=== PATIENT | male | born 1970 | race Caucasian/White ===

== ENCOUNTER 2024-10-08 05:55 | Day surgery (SDC) | payer OTHER ==
[2024-10-06 14:02] VITALS: BMI 30.4
[2024-10-08] MEDS ORDERED: PHENYLephrine 2.5% Ophth Soln 15 ml Bottle ONE (06:20)
[2024-10-08] MEDS ORDERED: Cyclopentolate 1% Opth Drop 2 ML BOT ONE (06:20)
[2024-10-08] MEDS ORDERED: Fluorouracil 100 MG, Enoxaparin 25 MG, EPINEPHrine 0.3 MG in Ophthalmic Irrigation Solu... IRR SCH (06:30)
[2024-10-08] MEDS ORDERED: PROPOFOL 0 ML ONE (06:39)
[2024-10-08] MEDS ORDERED: Lidocaine 1% PF 5 ML VIAL ONE (06:39)
[2024-10-08] MEDS ORDERED: fentaNYL 50 mcg/mL 1 mL Vial ONE (06:39)
[2024-10-08] MEDS ORDERED: Midazolam HCl 2 mg/2 ml Vial ONE (06:55)
[2024-10-08] MEDS ORDERED: PROPOFOL 20 ML ONE (07:12)
[2024-10-08] MEDS ORDERED: Dexamethasone 4 mg/ml Vial ONE (07:29)
[2024-10-08] MEDS ORDERED: Ondansetron PF 4 MG/2 ML Vial ONE (07:29)
[2024-10-08] MEDS ORDERED: CEFAZOLIN 1 GM VIAL ONE (07:30)
[2024-10-08] MEDS ORDERED: Triamcinolone 40 MG/ML VIAL ONE (07:30)
[2024-10-08] MEDS ORDERED: Bupivacaine 0.75% 10 ML VIAL ONE (07:30)
[2024-10-08] MEDS ORDERED: Lidocaine 4% PF 5 ML AMP ONE (07:30)
[2024-10-08] MEDS ORDERED: Enoxaparin 30 MG (0.3 mL) SYRINGE ONE (07:30)
== END 2024-10-08 09:25 | disposition home or self-care (01) ==
LOC: SDC 05:55
PROVIDERS: ATTEND Ophthalmology Retina Specialist
PROC: 08T53ZZ Resection of Left Vitreous, Percutaneous Approach (ICD-10-PCS; principal; 2024-10-08)
DX: H33.012 Retinal detachment with single break, left eye (principal); Z88.2 Allergy status to sulfonamides
CPT/HCPCS: 67025; J0171; J0690; J1100; J1650; J2250; J2405; J2704; J3010; J3301; J3490; J9190